=== PATIENT | female | born 1995 | race Caucasian/White ===

== ENCOUNTER 2021-01-01 10:25 | Day surgery (SDC) | payer BC, OTHER ==
[2020-12-29 16:38] LABS: BASOPHILS 0.4 % (0-2); EOSINOPHILS 1.2 % (0-7); HEMATOCRIT 36.9 % (36.0-48.0); HEMOGLOBIN 12.7 g/dL (12-16); MCH 29.4 pg (26.0-34.0); MCHC 34.3 g/dL (31.0-37.0); MCV 85.6 fL (80.0-100.0); MONOCYTES 5.7 % (2-11); NEUTROPHILS 65.7 % (40-80); RBC 4.31 10x6/uL (4.00-5.40); RDW 12.7 % (11.5-14.5); WBC 10.5 10x3/uL (4.8-10.8)
[2020-12-29 17:31] LABS: PLATELET COUNT 289 10x3/uL (130-400)
[~2021-01-01] VITALS: Ht 172.7 cm; Wt 96.6 kg
[~2021-01-01 10:25] MED LIST: ACETAMINOPHEN325 MG PO; ALEVE220 MG PO; BUTALB-ACETAMI1 EAC4 PO; EFFEXOR37.5 MG PO; EZFE 200200 MG PO; HYDROCODON-ACE1 EAC7 PO; LR IV; PEPCID20 MG PO; PRENATAL; TRAZODONE HCL50 MG PO
[2021-01-01 10:41] VITALS: BP 101/76; Ht 172.7 cm; Wt 96.6 kg
[2021-01-01 11:13] LABS: HCG URINE NEGATIVE (NEGATIVE)
--- NOTE | 2021-01-01 15:41 | NUR ---
IV D/C'D WITH CANNULA INTACT, PRESSURE HELD AND DRSG PLACED. DISCHARGE INSTRUCTIONS GIVEN AND PT VERBALIZED AN UNDERSTANDING. SSCENT SEROSANIGUINOUS DRAINAGE FROM UMBILICAL INCISION SO GAUZE AND TAPE PLACED.DISCHARGED HOME IN STABLE CONDITIONA AND WITHOUT C/O
--- NOTE | 2021-01-07 17:22 | OP ---
PATIENT NAME: ARISTIDES ANAND MEDICAL RECORD: [id number] :89 LOCATION:D.OPS ADMISSION DATE: SURGEON: SRINATH DUDLEY DO DATE OF OPERATION: 01/01/2021 PREOPERATIVE DIAGNOSES: 1. Pelvic pain. 2. Endometriosis. POSTOPERATIVE DIAGNOSES: 1. Pelvic pain. 2. Endometriosis. 3. Adhesions. PRIMARY SURGEON: Srinath Dudley DO ANESTHESIA: General endotracheal tube. PROCEDURE PERFORMED: Diagnostic laparoscopy, fulguration of endometrial implants, lysis of adhesions. FINDINGS: Grossly normal tubes and ovaries and uterus. Endometrial implants noted on the lateral pelvic sidewalls, right abdominal wall uterosacral ligament and a peritoneal window noted as well. Adhesions of bowel to abdominal wall noted on the right side. ESTIMATED BLOOD LOSS: 20 cc. IV FLUIDS: 1 liter. URINE OUTPUT: 350 cc of clear yellow urine in Rivers at end of case. COMPLICATIONS: None. Risks of surgery including bleeding, pain, infection, damage to surrounding structures including bowel, bladder, neurovascular structures, ureters and perforation as well as VTE, recovery time and reoperation were discussed with the patient. The patient agreed to procedure. Consents were signed in the office. All questions answered preoperatively. DESCRIPTION OF PROCEDURE: The patient was taken to the operating room where general anesthesia was administered and found to be adequate. She was prepped and draped in normal sterile fashion in dorsal lithotomy position in [facility]. Rivers was placed. Speculum placed, sounded to 8 cm. HUMI manipulator placed without issue. Attention was then turned to the abdomen. Marcaine injected into all port sites prior to placement. Incision made subumbilical with scalpel and 5-mm trocar placed using direct entry technique with no issues. Pneumoperitoneum created with CO2 gas. Abdominal inspection completed and no trauma noted from port placement. Second 5mm trocar placed on left lower quadrant under direct visualization without any issues. The patient was placed in Trendelenburg. Above findings noted. Endometrial implants noted on pelvic chen and OPERATIVE REPORT [id number] ARISTIDES ANAND uterosacral ligament and right sided wall. J-hook used to cauterize these implants with Good hemostasis noted. Some filmy adhesions noted on right side of abdomen, of omentum to abdominal wall and these were taken down with the J-Hook with good hemostasis. Marcaine was sprayed over anterior uterus and posterior cul-de-sac and again hemostasis was noted to be adequate. Instruments were removed and pneumoperitoneum deflated. Skin closed in a subcuticular fashion with 3-0 Monocryl and Dermabond. HUMI retractor removed. Some bleeding noted, so silver nitrate applied and Rivers catheter removed. The patient tolerated the procedure well. Lap, instrument and needle counts were correct times 2. The patient was awakened and taken to recovery room in stable condition. TRANSINT:[id number] Voice Confirmation ID: [id number] DOCUMENT ID: [id number] SRINATH DUDLEY DO at 1722 CC: [id number] DICTATION DATE: 01/06/212121 COMPOSITOR APPRENTICE: 01/07/21309 [facility] 01/01/21 [facility] [address] [place] [address]
== END 2021-01-01 15:15 | disposition home or self-care (01) ==
LOC: D.OPS 10:25
PROVIDERS: ATTEND Obstetrics & Gynecology
DX: R10.2 Pelvic and perineal pain (principal); N80.3 Endometriosis of pelvic peritoneum; N92.6 Irregular menstruation, unspecified; N73.6 Female pelvic peritoneal adhesions (postinfective)